=== PATIENT | male | born 1925 | race Caucasian/White ===

== ENCOUNTER 2016-04-02 12:34 | Observation (INO) | payer OTHER, BC, MEDICARE ==
[~2016-04-02] VITALS: Ht 170.2 cm; Wt 52.8 kg
[~2016-04-02 12:34] MED LIST: ALFUZOSIN HCL10 MG PO; ARICEPT10 MG PO; ASCORBIC ACID500 M3 PO; ASPIR 8181 M1 PO; CALTRATE 6001 TABLET PO; CARDIZEM120 MG PO; CIPROFLOXACIN250 MG PO; CRESTOR5 MG PO; CYANOCOBALAM1000 MCG PO; FE C PLUS TABL1 EACH PO; FISH OIL 1,0001 EA10 PO; FISH OIL SOFTG1 EACH PO; LEXAPRO20 MG PO; METOPROLOL SUCC25 MG PO; NABI650T PO; PREDNISONE5 MG PO; PROTONIX40 MG PO; SYMBICORT60 INHALA1 IH; SYMBICORT60 INHALAT IH; TYLENOL EXTRA500 MG PO; ULTRAM50 MG PO; VITAMIN D1000 UNIT PO; VITRON-C TABLE1 EACH PO; ZOFRAN ODT8 MG PO; ZOLPIDEM TART6.25 MG PO; ZYRTEC10 M3 PO
[2016-04-02 13:22] LABS: HEMATOCRIT 33.1 % (38.0-50.0); MCH 27.9 PG (29.0-34.0); MCV 87.1 FL (86-99); MEAN PLAT.VOLUME 10.9 uM^3 (9.0-12.4); PLATELET COUNT 154 K/uL (156-360); RBC DIS.WIDTH-CV 19.8 % (11.8-14.6)
[2016-04-02 13:30] LABS: EOSINOPHIL (%) 0.2 % (0-5); IMMATURE GRANULOCYTE (%) 0.6 % (0.0-0.7); IMMATURE GRANULOCYTE COUNT 0.4 K/uL; LYMPHOCYTE COUNT 0.2 K/uL (1.0-2.8); MONOCYTE (%) 6.6 % (3-12); MONOCYTE COUNT 0.4 K/uL (0-0.8); NEUTROPHIL (%) 89.6 % (45-76); NEUTROPHIL COUNT 5.8 K/uL (1.8-6.4); WHITE BLOOD COUNT 6.5 K/uL (4.1-10.2)
[2016-04-02 13:32] LABS: CHLORIDE 113 mEq/L (99-109); POTASSIUM 4.7 mEq/L (3.7-5.4); SODIUM 142 mEq/L (136-147)
[2016-04-02 13:34] LABS: GLUCOSE 105 mg/dL (70-99)
[2016-04-02 13:35] LABS: ANION GAP 13 MEQ/L (2-14)
[2016-04-02 13:38] LABS: GFR ESTIMATE (CALCULATED) 14 mL/min/
[2016-04-02 13:39] LABS: UREA NITROGEN (BUN) 75 mg/dL (9-23)
[2016-04-02 13:40] LABS: URIC ACID 10.8 mg/dL (3.1-9.2)
[2016-04-02 14:08] LABS: ERTH.SED.RATE 16 MM/HR (0-20)
[2016-04-02 14:50] LABS: ADD MIUA? YES; BILIRUBIN NEGATIVE; BLOOD LARGE; COLOR YELLOW ((YELLOW)); GLUCOSE (STRIP) NEGATIVE; KETONES NEGATIVE; LEUKOCYTES LARGE; NITRITE NEGATIVE; PROTEIN (STRIP) 100; UROBILINOGEN 0.2 MG/DL (0.2-1.0)
[2016-04-02 15:23] LABS: RED BLOOD CELLS TNTC /HPF (0-5); WHITE BLOOD CELLS TNTC /HPF (0-5)
[2016-04-02] MEDS ORDERED: VITAMIN D31000 UNIT PO (16:44)
[2016-04-02] MEDS ORDERED: ASPIRIN325 MG PO (16:45)
[2016-04-02 21:47] VITALS: BP 137/64
[2016-04-03 04:24] VITALS: BP 99/49
[2016-04-03 06:07] LABS: HEMATOCRIT 27.7 % (38.0-50.0); MCH 27.6 PG (29.0-34.0); MCHC 32.1 G/DL (30.0-36.0); MEAN PLAT.VOLUME 10.9 uM^3 (9.0-12.4); PLATELET COUNT 124 K/uL (156-360); RBC DIS.WIDTH-SD 63.7 % (39-53); RED BLOOD COUNT 3.22 M/uL (4.00-5.50); WHITE BLOOD COUNT 6.8 K/uL (4.1-10.2)
[2016-04-03 06:31] LABS: ANION GAP 10 MEQ/L (2-14); CHLORIDE 112 MEQ/L (99-109); GFR ESTIMATE (CALCULATED) 15 mL/min/; GLUCOSE 93 mg/dL (70-99); POTASSIUM 4.7 MEQ/L (3.7-5.4); SAMPLE HEMOLYSIS CHECK 0; SAMPLE ICTERIC CHECK 0; SAMPLE LIPEMIA CHECK 0; SODIUM 139 MEQ/L (136-147); UREA NITROGEN (BUN) 70 mg/dL (9-23)
[2016-04-03 08:00] VITALS: BP 95/45
[2016-04-03 08:30] VITALS: BP 115/56
[2016-04-03 11:02] VITALS: BP 137/59
[2016-04-03 11:23] LABS: LYME DISEASE SEROLOGY SCREEN NEGATIVE (NEGATIVE)
[2016-04-03 16:12] VITALS: BP 132/70
[2016-04-03 20:55] VITALS: BP 126/72
[2016-04-04 00:34] VITALS: BP 161/67
[2016-04-04 05:37] VITALS: BP 151/67
[2016-04-04 08:15] VITALS: BP 134/63
[2016-04-04 10:13] LABS: HEMATOCRIT 29.6 % (38.0-50.0); MCH 27.2 PG (29.0-34.0); MCHC 31.8 G/DL (30.0-36.0); MCV 85.5 FL (86-99); MEAN PLAT.VOLUME 10.8 uM^3 (9.0-12.4); PLATELET COUNT 121 K/uL (156-360); RBC DIS.WIDTH-CV 19.9 % (11.8-14.6); RBC DIS.WIDTH-SD 62.4 % (39-53); RED BLOOD COUNT 3.46 M/uL (4.00-5.50); WHITE BLOOD COUNT 6.2 K/uL (4.1-10.2)
[2016-04-04 10:35] LABS: ANION GAP 9 MEQ/L (2-14); CHLORIDE 115 MEQ/L (99-109); GFR ESTIMATE (CALCULATED) 17 mL/min/; GLUCOSE 93 mg/dL (70-99); POTASSIUM 4.3 MEQ/L (3.7-5.4); SAMPLE HEMOLYSIS CHECK 0; SAMPLE ICTERIC CHECK 0; SAMPLE LIPEMIA CHECK 0; SODIUM 143 MEQ/L (136-147); UREA NITROGEN (BUN) 65 mg/dL (9-23)
[2016-04-04] MEDS ORDERED: LINEZOLID600 MG PO (10:39)
[2016-04-04 12:16] VITALS: BP 147/76
== END 2016-04-04 16:33 ==
LOC: EME 12:34 → 5WEST 18:56 → EDOF 18:56 → 5WEST 21:00
PROVIDERS: Hospitalist; Internal Medicine; Physician Assistant
DX: N39.0 Urinary tract infection, site not specified (principal); B95.61 Methicillin susceptible Staphylococcus aureus infection as the cause of diseases classified elsewhere; R78.81 Bacteremia; B95.62 Methicillin resistant Staphylococcus aureus infection as the cause of diseases classified elsewhere; N17.9 Acute kidney failure, unspecified; I12.0 Hypertensive chronic kidney disease with stage 5 chronic kidney disease or end stage renal disease; N18.5 Chronic kidney disease, stage 5; J84.10 Pulmonary fibrosis, unspecified; M70.41 Prepatellar bursitis, right knee; M25.561 Pain in right knee; H91.90 Unspecified hearing loss, unspecified ear; J44.9 Chronic obstructive pulmonary disease, unspecified; D50.9 Iron deficiency anemia, unspecified; E78.5 Hyperlipidemia, unspecified; I25.10 Atherosclerotic heart disease of native coronary artery without angina pectoris; Z98.61 Coronary angioplasty status; Z87.891 Personal history of nicotine dependence; Z82.49 Family history of ischemic heart disease and other diseases of the circulatory system; Z80.6 Family history of leukemia; Z80.42 Family history of malignant neoplasm of prostate; Z88.1 Allergy status to other antibiotic agents; Z88.0 Allergy status to penicillin; Z88.2 Allergy status to sulfonamides
CPT/HCPCS: 71010; 73564; 74176; 80048; 81003; 82565; 83605; 84550; 85025; 85027; 85651; 86618; 87040; 87077; 87086; 87147; 87186; 87801; 93306; 93971; 94640; 94640 76; 94799; 99202; 99281; 99285; G0378; G8978 GP CJ; G8979 GP CI; G8987 GO CJ; G8988 CI; J0696; J1644; J3370; J7030; J7050; J7512